=== PATIENT | male | born 1955 | race African-American/Black ===

== ENCOUNTER 2019-08-05 21:58 | Emergency (ER) | payer BC ==
[2019-08-05] MEDS ORDERED: hydrALAZINE 25 MG TAB ONE (22:54)
[2019-08-05] MEDS ORDERED: cloNIDine 0.1 MG TAB ONE (23:53)
== END 2019-08-06 00:13 | disposition home or self-care (01) ==
LOC: ERS 21:58
DX: R05 Cough (principal); I10 Essential (primary) hypertension; Z79.899 Other long term (current) drug therapy
CPT/HCPCS: 99283

== ENCOUNTER 2020-03-16 08:39 | Outpatient (CLI) | payer BC ==
--- NOTE | 2020-03-16 09:12 | RAD ---
XR Chest Pa Lat STANDARD HISTORY: Cough, reactive airway disease, shortness of breath COMPARISON: 10/13/2017 FINDINGS: The heart size is normal. The lungs are well expanded without focal areas of consolidation, pneumothorax or pleural effusions. There are degenerative changes in the spine. IMPRESSION: No radiographic evidence of acute cardiopulmonary process.
== END 2020-03-16 08:40 | disposition home or self-care (01) ==
LOC: BICRAD 08:39
PROVIDERS: ATTEND Internal Medicine
DX: J45.909 Unspecified asthma, uncomplicated (principal); R05 Cough
CPT/HCPCS: 36415; 71046; 80053; 83036; 83880; 85025

== ENCOUNTER 2020-10-06 03:07 | Observation (INO) | payer BC ==
[2020-10-06] MEDS ORDERED: Nitroglycerin 2% Ointment 1 INCH/1 GM Packet ONE (03:25)
[2020-10-06] MEDS ORDERED: Furosemide 40 MG/4 ML VIAL ONE (03:25)
[2020-10-06 03:52] LABS: #Basophils 0.1 thou/uL (0.0-0.2); #Eosinphils 0.3 thou/uL (0.0-0.7); #Lymphocytes 2.6 thou/uL (1.20-3.40); #Monocytes 0.4 thou/uL (0.11-0.59); #Neutrophils 3.8 thou/uL (1.40-6.50); %Basophils 1.3 % (0.0-1.0); %Eosinophils 4.6 % (0.0-10.0); %Lymphocytes 35.8 % (21.0-51.0); %Neutrophils 52.2 % (42.0-75.0); Hemoglobin 13.6 g/dL (14.0-18.0); Mean Corpuscular HGB CONC 33.5 g/dL (32.0-36.0); Mean Corpuscular Hemoglobin 29.8 pg (27.0-31.0); Mean Corpuscular Volume 88.9 fL (78.0-98.0); Mean Platelet Volume 9.3 fL (7.4-10.4); Platelet Count 192 thou/uL (130-400); RBC Distribution Width 13.1 % (11.5-14.5); Red Blood Cell (RBC) Count 4.57 mill/uL (4.70-6.10); White Blood Cell (WBC) Count 7.2 thou/uL (4.8-10.8)
[2020-10-06 04:16] LABS: ALT (SGPT) 54 U/L (8-55); AST (SGOT) 57 U/L (5-34); Albumin 3.9 g/dL (3.4-4.8); Alkaline Phosphatase 76 U/L (40-110); Anion Gap 13 mmol/L (10-20); BUN (Urea Nitrogen) 20 mg/dL (8.4-25.7); Bilirubin, Total 0.5 mg/dL (0.2-1.2); Calc. Creatinine Clearance 0 mL/min (70-130); Calcium 8.9 mg/dL (7.8-10.44); Carbon Dioxide 28 mmol/L (23-31); Chloride 105 mmol/L (98-107); Globulin 3.3 g/dL (2.4-3.5); Glucose 144 mg/dL (80-115); Potassium 3.8 mmol/L (3.5-5.1); Protein, Total 7.2 g/dL (5.8-8.1); Sodium 142 mmol/L (136-145)
[2020-10-06] MEDS ORDERED: Ondansetron PF 4 MG/2 ML Vial IVP PRN (05:25)
[2020-10-06] MEDS ORDERED: HYDROcodone/Acetaminophen 5/325 mg Tablet PO PRN (05:25)
[2020-10-06] MEDS ORDERED: Acetaminophen 325 MG TAB PO PRN (05:25)
[2020-10-06] MEDS ORDERED: Furosemide 40 MG/4 ML VIAL SLOW IVP SCH (06:00)
[2020-10-06 07:05] LABS: Troponin I 0.013 ng/mL (< 0.028)
[2020-10-06 07:15] LABS: SARS-CoV-2 NAA Rapid Test Not Detected (NotDetected)
[2020-10-06] MEDS ORDERED: Enoxaparin Sodium 40 MG/0.4 ML SYRINGE SC SCH (09:00)
[2020-10-06] MEDS ORDERED: Famotidine 20 MG TAB PO SCH (09:00)
[2020-10-06] MEDS ORDERED: Losartan 25 MG TAB PO SCH (09:00)
[2020-10-06] MEDS ORDERED: Carvedilol 6.25 MG TAB PO SCH (09:00)
[2020-10-06] MEDS ORDERED: Aspirin Chewable 81 MG TAB PO SCH (09:00)
[2020-10-06 09:47] VITALS: BMI 48.9
[2020-10-06 10:47] LABS: Troponin I 0.012 ng/mL (< 0.028)
[2020-10-06 12:16] VITALS: BP 178/85; TEMP 97.9
== END 2020-10-06 14:35 | disposition home or self-care (01) ==
LOC: ERS 03:07 → 2SW 05:00
PROVIDERS: ADMIT Internal Medicine; ATTEND Internal Medicine
DX: I11.0 Hypertensive heart disease with heart failure (principal); I50.31 Acute diastolic (congestive) heart failure; I16.0 Hypertensive urgency; I25.2 Old myocardial infarction; E78.5 Hyperlipidemia, unspecified; R73.9 Hyperglycemia, unspecified; J45.909 Unspecified asthma, uncomplicated; R06.03 Acute respiratory distress; E66.9 Obesity, unspecified; Z68.42 Body mass index [BMI] 45.0-49.9, adult; Z79.2 Long term (current) use of antibiotics; Z79.82 Long term (current) use of aspirin; Z79.899 Other long term (current) drug therapy; Z89.022 Acquired absence of left finger(s); Z20.822 Contact with and (suspected) exposure to COVID-19
CPT/HCPCS: 0240U; 36415; 36416; 71045; 80053; 83880; 84443; 84484; 85025; 93005; 96372; 96374; G0378; J1650; J1940

== ENCOUNTER 2020-12-29 06:02 | Day surgery (SDC) | payer BC ==
[2020-12-28 11:51] VITALS: BMI 50.1
[2020-12-29] MEDS ORDERED: Heparin 10,000 UNITS/ 10 ML VIAL ONE (06:38)
[2020-12-29] MEDS ORDERED: Fentanyl 100 MCG/2 ML VIAL ONE (06:38)
[2020-12-29] MEDS ORDERED: Midazolam HCl 2 mg/2 ml Vial ONE (06:38)
[2020-12-29] MEDS ORDERED: Lidocaine 1% (PF) 30 ML VIAL ONE (06:39)
[2020-12-29] MEDS ORDERED: Protamine Sulfate 50 MG/5 ML VIAL ONE (07:39)
[2020-12-29] MEDS ORDERED: Acetaminophen/Codeine 30-300mg Tablet ONE (09:21)
[2020-12-29] MEDS ORDERED: Iopamidol 370 76% 100 ML VIAL ONE (10:06)
[2020-12-29] MEDS ORDERED: Iopamidol 370 76% 50 ML VIAL FS ONE (10:06)
== END 2020-12-29 14:34 | disposition home or self-care (01) ==
LOC: CCL 06:02
PROVIDERS: ATTEND Internal Medicine Cardiovascular Disease
PROC: 4A023N7 Measurement of Cardiac Sampling and Pressure, Left Heart, Percutaneous Approach (ICD-10-PCS; principal; 2020-12-29)
PROC: B2111ZZ Fluoroscopy of Multiple Coronary Arteries using Low Osmolar Contrast (ICD-10-PCS; principal; 2020-12-29)
DX: I25.10 Atherosclerotic heart disease of native coronary artery without angina pectoris (principal); E78.00 Pure hypercholesterolemia, unspecified; I42.8 Other cardiomyopathies; I11.0 Hypertensive heart disease with heart failure; I50.32 Chronic diastolic (congestive) heart failure; E03.9 Hypothyroidism, unspecified; Z79.82 Long term (current) use of aspirin; Z79.899 Other long term (current) drug therapy
CPT/HCPCS: 85347; 93458; 99152; J1644; J2001; J2250; J2720; J3010; Q9967

== ENCOUNTER 2022-01-02 13:20 | Outpatient (CLI) | payer BC | END 2022-01-02 13:21 | disposition home or self-care (01) | LOC: BICULT 13:20 | PROVIDERS: ATTEND Internal Medicine | DX: I82.401 Acute embolism and thrombosis of unspecified deep veins of right lower extremity (principal); M79.89 Other specified soft tissue disorders ==

== ENCOUNTER 2023-10-21 11:29 | Outpatient (CLI) | payer OTHER | END 2023-10-21 11:30 | disposition home or self-care (01) | LOC: RAD 11:29 | PROVIDERS: ATTEND Internal Medicine Cardiovascular Disease | DX: R06.02 Shortness of breath (principal); R91.8 Other nonspecific abnormal finding of lung field | CPT/HCPCS: 71046 ==

== ENCOUNTER 2025-04-13 17:49 | Emergency (ER) | payer OTHER | END 2025-04-13 20:09 | disposition home or self-care (01) | LOC: ERS 17:49 | DX: M25.511 Pain in right shoulder (principal); I10 Essential (primary) hypertension; I25.2 Old myocardial infarction; Z79.899 Other long term (current) drug therapy | CPT/HCPCS: 96372; 99284 ==